=== PATIENT | male | born 1970 ===

== ENCOUNTER 2023-08-15 11:10 | Day surgery (SDC) | payer OTHER ==
[~2023-08-15] VITALS: Ht 185.4 cm; Wt 83.9 kg
[2023-08-15] MEDS ORDERED: fentaNYL citrate 0.05 MG/ML VIAL ONE (15:47)
[2023-08-15] MEDS ORDERED: LIDOCAINE 2% 100 MG/5 ML UJET TP ONE (15:47)
[2023-08-15] MEDS ORDERED: fentaNYL citrate 0.05 MG/ML VIAL IVP ONE (18:25)
== END 2023-08-15 17:39 | disposition home or self-care (01) ==
LOC: MDS 11:10 → MMU 14:12 → MDS 17:39
PROVIDERS: ATTEND Internal Medicine Gastroenterology
DX: Z12.11 Encounter for screening for malignant neoplasm of colon (principal); E78.5 Hyperlipidemia, unspecified; Z79.899 Other long term (current) drug therapy
CPT/HCPCS: 45378; J3010